=== PATIENT | female | born 1995 | race Caucasian/White ===

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

== ENCOUNTER 2017-09-02 13:56 | Emergency (ER) | payer MEDICAID | END 2017-09-02 16:29 | disposition home or self-care (01) | LOC: D.ER 13:56 | DX: S99.921A Unspecified injury of right foot, initial encounter (principal); W20.8XXA Other cause of strike by thrown, projected or falling object, initial encounter; Y93.89 Activity, other specified; Y92.019 Unspecified place in single-family (private) house as the place of occurrence of the external cause; M79.671 Pain in right foot; F17.200 Nicotine dependence, unspecified, uncomplicated ==

== ENCOUNTER 2018-04-17 17:47 | Emergency (ER) | payer SELFPAY ==
[~2018-04-17] VITALS: Ht 142.2 cm; Wt 38.6 kg
[2018-04-17 17:59] VITALS: BP 125/75; Ht 142.2 cm; Wt 38.6 kg
[2018-04-17 21:52] LABS: HCG URINE NEGATIVE (NEGATIVE)
[2018-04-17] MEDS ORDERED: TORADOL10 MG PO (22:13)
== END 2018-04-17 23:23 | disposition home or self-care (01) ==
LOC: D.ER 17:47
PROVIDERS: Family Medicine
DX: S02.31XA Fracture of orbital floor, right side, initial encounter for closed fracture (principal); Y04.2XXA Assault by strike against or bumped into by another person, initial encounter; Y93.89 Activity, other specified; Y92.019 Unspecified place in single-family (private) house as the place of occurrence of the external cause; S00.93XA Contusion of unspecified part of head, initial encounter; S05.12XA Contusion of eyeball and orbital tissues, left eye, initial encounter; S50.11XA Contusion of right forearm, initial encounter